=== PATIENT | female | born 1975 | race Caucasian/White ===

== ENCOUNTER 2017-09-15 12:55 | Inpatient (IN) | payer BC, MEDICAID ==
[2017-09-15] VITALS (9 sets, daily range): BP systolic 126–177; BP diastolic 49–104
[~2017-09-15] VITALS: Ht 151.1 cm; Wt 105.0 kg
[2017-09-15 13:23] LABS: BASOPHILS # (AUTO) 0.1 X10'3 (0-0.2); BASOPHILS % (AUTO) 1.3 % (0-1); EOSINOPHILS # (AUTO) 0.2 X10'3 (0-0.9); EOSINOPHILS % (AUTO) 2.2 % (0-6); LYMPHOCYTES # (AUTO) 1.4 X10'3 (1.1-4.8); MEAN CORPUSCULAR HEMOGLOBIN 16.4 PG (27.0-31.0); MEAN CORPUSCULAR HGB CONC 29.3 % (33.0-36.5); MEAN CORPUSCULAR VOLUME 56.1 FL (78-98); MEAN PLATELET VOLUME 7.3 FL (7.4-10.4); MONOCYTES # (AUTO) 0.6 X10'3 (0-0.9); MONOCYTES % (AUTO) 6.9 % (2-12); NEUTROPHILS # (AUTO) 6.8 X10'3 (1.8-7.7); NEUTROPHILS % (AUTO) 74.6 % (42-75); PLATELET COUNT 334 X10'3 (140-440); RED BLOOD COUNT 2.99 X10'6 (4.20-5.60); WHITE BLOOD COUNT 9.1 X10'3 (4.5-11.0)
[2017-09-15 13:30] LABS: HEMATOCRIT 16.8 % (35.0-45.0); HEMOGLOBIN 4.9 g/dl (12.0-16.0)
[2017-09-15 13:35] LABS: INR 1.1 INR; PARTIAL THROMBOPLASTIN TIME 21 SECONDS (22-32); PROTHROMBIN TIME 11.6 SECONDS (9.0-12.0)
[2017-09-15 13:42] LABS: ALANINE AMINOTRANSFERASE 18 U/L (12-78); ALBUMIN 3.3 G/DL (3.4-5.0); ALBUMIN/GLOBULIN RATIO 0.8 (1.1-1.5); ALKALINE PHOSPHATASE 101 IU/L (46-116); ANION GAP 13 (8-16); ASPARTATE AMINO TRANSFERASE 17 U/L (10-37); BILIRUBIN,TOTAL 0.5 MG/DL (0.1-1.0); BLOOD UREA NITROGEN 15 MG/DL (7-18); BUN/CREATININE RATIO 16.9 (6.6-38.0); CHLORIDE 105 MMOL/L (99-107); CREATININE 0.89 MG/DL (0.40-0.90); GLUCOSE 116 MG/DL (70-104); POTASSIUM 4.3 MMOL/L (3.5-5.1); SODIUM 141 MMOL/L (135-145); TOTAL CARBON DIOXIDE 23.3 MMOL/L (24-32); TOTAL PROTEIN 7.2 G/DL (6.4-8.2); eGFR 69 ML/MIN
[2017-09-15 14:29] LABS: ANISOCYTOSIS 3+; MICROCYTOSIS 3+; NUCLEATED RED BLOOD CELLS 2 /100WBC (0-0); PLATELET ESTIMATE NORMAL; TOTAL CELLS COUNTED 100
[2017-09-15 14:30] LABS: HYPOCHROMASIA 2+; POLYCHROMASIA FEW
[2017-09-15 14:31] LABS: ELLIPTOCYTES FEW; SCHISTOCYTES FEW
[2017-09-15 14:34] LABS: GIANT PLATELET FEW; LARGE PLATELETS FEW
[2017-09-15] MEDS ORDERED: magnesium 2GM in 50ml NS 50 ML IV PRN (15:10)
[2017-09-15] MEDS ORDERED: HYDROmorphone inj. 0.5 MG/0.5 ML DISP.SYRIN IV PRN ×2 (15:10)
[2017-09-15] MEDS ORDERED: potassium Cl 20 mEq SR tablet PO PRN ×2 (15:10)
[2017-09-15] MEDS ORDERED: ondansetron/PF 4mg/2ml inj IV PRN (15:10)
[2017-09-15] MEDS ORDERED: magnesium 4gm in 100ml NS 100 ML IV PRN (15:10)
[2017-09-15] MEDS ORDERED: HYDROcodone/acetaminophen 5mg/325mg tablet PO PRN (15:10)
[2017-09-15] MEDS ORDERED: magnesium Cl slow-release 64mg tablet PO PRN (15:10)
[2017-09-15] MEDS ORDERED: potassium Cl 40MEQ/NS 500ml 500 ML IV PRN ×2 (15:10)
[2017-09-15] MEDS ORDERED: mag hydrox/Alum hydrox/simeth 30ml oral suspension PO PRN (15:10)
[2017-09-15] MEDS ORDERED: morphine 4 MG/ML inj SYRINge IV PRN (15:10)
[2017-09-15] MEDS ORDERED: acetaminophen 325mg tablet PO PRN (15:10)
[2017-09-15] MEDS ORDERED: magnesium hydroxide 30ml (MOM) UD suspension PO PRN (15:10)
[2017-09-15] MEDS: K and/or MAG REPLACEMENT MC SCH (15:10)
[2017-09-15] MEDS: normal saline 1000ml 1,000 ML IV SCH (15:19)
[2017-09-15] MEDS ORDERED: RANI150T8 PO (19:44)
[2017-09-15] MEDS ORDERED: IBUP200C5 PO (19:44)
[2017-09-15 20:07] LABS: OCCULT BLOOD STOOL POSITIVE (Neg)
[2017-09-15] MEDS: morphine 4 MG/ML inj SYRINge IV PRN (20:38)
[2017-09-16] VITALS (24 sets, daily range): BP systolic 121–180; BP diastolic 71–100
[2017-09-16] MEDS: normal saline 1000ml 1,000 ML IV SCH ×3 (01:08→22:35)
[2017-09-16] MEDS: morphine 4 MG/ML inj SYRINge IV PRN (04:21)
[2017-09-16] MEDS: K and/or MAG REPLACEMENT MC SCH (08:00)
[2017-09-16 08:14] LABS: BASOPHILS % (AUTO) 0 % (0-1); EOSINOPHILS # (AUTO) 0.2 X10'3 (0-0.9); EOSINOPHILS % (AUTO) 2.2 % (0-6); HEMATOCRIT 28.7 % (35.0-45.0); LYMPHOCYTES # (AUTO) 1.6 X10'3 (1.1-4.8); LYMPHOCYTES % (AUTO) 20.1 % (21-51); MEAN CORPUSCULAR HGB CONC 31.4 % (33.0-36.5); MEAN CORPUSCULAR VOLUME 70.1 FL (78-98); MEAN PLATELET VOLUME 7.6 FL (7.4-10.4); MONOCYTES # (AUTO) 0.6 X10'3 (0-0.9); MONOCYTES % (AUTO) 7.5 % (2-12); NEUTROPHILS # (AUTO) 5.7 X10'3 (1.8-7.7); NEUTROPHILS % (AUTO) 70.2 % (42-75); PLATELET COUNT 231 X10'3 (140-440); RED BLOOD COUNT 4.09 X10'6 (4.20-5.60); RED CELL DISTRIBUTION WIDTH 31.1 % (11.5-14.5); WHITE BLOOD COUNT 8.1 X10'3 (4.5-11.0)
[2017-09-16 08:26] LABS: ALBUMIN 3.1 G/DL (3.4-5.0); ANION GAP 9 (8-16); BLOOD UREA NITROGEN 10 MG/DL (7-18); BUN/CREATININE RATIO 12.3 (6.6-38.0); CALCIUM 8.5 MG/DL (8.5-10.1); CHLORIDE 108 MMOL/L (99-107); CREATININE 0.81 MG/DL (0.40-0.90); GLUCOSE 107 MG/DL (70-104); MAGNESIUM 2.3 MG/DL (1.5-2.4); POTASSIUM 4.1 MMOL/L (3.5-5.1); SODIUM 141 MMOL/L (135-145); TOTAL CARBON DIOXIDE 23.7 MMOL/L (24-32); TROPONIN I 0.07 NG/ML (0.0-0.05); eGFR 77 ML/MIN
[2017-09-16 08:28] LABS: INR 1.1 INR; PROTHROMBIN TIME 11.2 SECONDS (9.0-12.0)
[2017-09-16 08:37] LABS: ANISOCYTOSIS 3+; PLATELET ESTIMATE NORMAL
[2017-09-16 08:38] LABS: MICROCYTOSIS 2+
[2017-09-16 08:39] LABS: HYPOCHROMASIA 1+; POIKILOCYTOSIS FEW; POLYCHROMASIA 2+
[2017-09-16] MEDS ORDERED: fentaNYL/PF 50MCG/1 ML 2ML syringe ONE (14:57)
[2017-09-16] MEDS ORDERED: MIDAZolam 5mg/5ml vial ONE (14:58)
[2017-09-16] MEDS ORDERED: LIDOcaine Viscous 15ml cup ONE (14:58)
[2017-09-16] MEDS ORDERED: ipratropium/albuterol 3ml nebule IH PRN (19:35)
[2017-09-16] MEDS ORDERED: hydrALAZINE 20mg/ml inj. IV PRN (19:35)
[2017-09-16] MEDS ORDERED: ipratropium/albuterol 3ml nebule NEB PRN (19:40)
[2017-09-16] MEDS: pantoprazole 40 MG vial IV SCH (20:00)
[2017-09-16] MEDS ORDERED: normal saline 1000ml 1,000 ML IVB ONE (21:21)
[2017-09-16 21:32] LABS: URINE HCG NEGATIVE (NEG)
[2017-09-16] MEDS: nicotine 21mg patch - 24 hr TD SCH (22:00)
[2017-09-17 00:05] VITALS: BP 138/68
[2017-09-17 01:52] LABS: ALBUMIN 2.9 G/DL (3.4-5.0); ANION GAP 11 (8-16); BLOOD UREA NITROGEN 7 MG/DL (7-18); BUN/CREATININE RATIO 8.9 (6.6-38.0); CALCIUM 8.4 MG/DL (8.5-10.1); CHLORIDE 107 MMOL/L (99-107); CREATININE 0.79 MG/DL (0.40-0.90); GLUCOSE 129 MG/DL (70-104); MAGNESIUM 2.2 MG/DL (1.5-2.4); POTASSIUM 3.8 MMOL/L (3.5-5.1); SODIUM 141 MMOL/L (135-145); TOTAL CARBON DIOXIDE 23.5 MMOL/L (24-32); TROPONIN I 0.07 NG/ML (0.0-0.05); eGFR 79 ML/MIN
[2017-09-17 01:57] LABS: BASOPHILS % (AUTO) 0.1 % (0-1); EOSINOPHILS # (AUTO) 0.3 X10'3 (0-0.9); EOSINOPHILS % (AUTO) 2.7 % (0-6); HEMATOCRIT 29.5 % (35.0-45.0); HEMOGLOBIN 9.3 g/dl (12.0-16.0); LYMPHOCYTES # (AUTO) 1.5 X10'3 (1.1-4.8); LYMPHOCYTES % (AUTO) 15.2 % (21-51); MEAN CORPUSCULAR HEMOGLOBIN 22.1 PG (27.0-31.0); MEAN CORPUSCULAR HGB CONC 31.5 % (33.0-36.5); MEAN CORPUSCULAR VOLUME 70.1 FL (78-98); MONOCYTES # (AUTO) 0.8 X10'3 (0-0.9); MONOCYTES % (AUTO) 8.4 % (2-12); NEUTROPHILS # (AUTO) 7.4 X10'3 (1.8-7.7); NEUTROPHILS % (AUTO) 73.6 % (42-75); PLATELET COUNT 219 X10'3 (140-440); RED BLOOD COUNT 4.21 X10'6 (4.20-5.60); RED CELL DISTRIBUTION WIDTH 31.3 % (11.5-14.5)
[2017-09-17 02:11] LABS: D-DIMER 7.86 MG/L FEU (0-0.50); INR 1.1 INR; PROTHROMBIN TIME 11.5 SECONDS (9.0-12.0)
[2017-09-17] MEDS: K and/or MAG REPLACEMENT MC SCH (08:00)
[2017-09-17] MEDS: nicotine 21mg patch - 24 hr TD SCH (08:00)
[2017-09-17] MEDS: nitroGLYCERIN 0.4mg/hour patch TD SCH (08:00)
[2017-09-17] MEDS: pantoprazole 40 MG vial IV SCH ×2 (08:52→20:04)
[2017-09-17 08:58] VITALS: BP 138/81
[2017-09-17 13:05] VITALS: BP 155/76
[2017-09-17] MEDS ORDERED: iohexol 350MG/ML 100ml bottle IV ONE (17:18)
[2017-09-17 18:00] VITALS: BP 148/79
[2017-09-17] MEDS ORDERED: heparin 10,000 units/1 ML INJ IV ONE ×2 (23:25)
[2017-09-18] VITALS: BP 164/81
[2017-09-18 00:13] LABS: BASOPHILS % (AUTO) 0.3 % (0-1); EOSINOPHILS # (AUTO) 0.3 X10'3 (0-0.9); EOSINOPHILS % (AUTO) 3.5 % (0-6); HEMATOCRIT 30.6 % (35.0-45.0); HEMOGLOBIN 9.6 g/dl (12.0-16.0); LYMPHOCYTES # (AUTO) 2.1 X10'3 (1.1-4.8); LYMPHOCYTES % (AUTO) 23.9 % (21-51); MEAN CORPUSCULAR HEMOGLOBIN 21.9 PG (27.0-31.0); MEAN CORPUSCULAR HGB CONC 31.4 % (33.0-36.5); MEAN CORPUSCULAR VOLUME 69.7 FL (78-98); MEAN PLATELET VOLUME 7.6 FL (7.4-10.4); MONOCYTES # (AUTO) 0.8 X10'3 (0-0.9); MONOCYTES % (AUTO) 8.6 % (2-12); NEUTROPHILS # (AUTO) 5.7 X10'3 (1.8-7.7); NEUTROPHILS % (AUTO) 63.7 % (42-75); PLATELET COUNT 217 X10'3 (140-440); RED CELL DISTRIBUTION WIDTH 31.6 % (11.5-14.5); WHITE BLOOD COUNT 8.9 X10'3 (4.5-11.0)
[2017-09-18 00:22] LABS: ANION GAP 13 (8-16); BLOOD UREA NITROGEN 6 MG/DL (7-18); BUN/CREATININE RATIO 7.7 (6.6-38.0); CALCIUM 8.7 MG/DL (8.5-10.1); CHLORIDE 107 MMOL/L (99-107); CREATININE 0.78 MG/DL (0.40-0.90); GLUCOSE 114 MG/DL (70-104); MAGNESIUM 2.2 MG/DL (1.5-2.4); POTASSIUM 3.6 MMOL/L (3.5-5.1); SODIUM 142 MMOL/L (135-145); TOTAL CARBON DIOXIDE 22.2 MMOL/L (24-32); eGFR 80 ML/MIN
[2017-09-18 00:38] LABS: INR 1.1 INR; PROTHROMBIN TIME 11.2 SECONDS (9.0-12.0)
[2017-09-18 02:11] LABS: ANISOCYTOSIS 2+; MICROCYTOSIS 2+; PLATELET ESTIMATE NORMAL
[2017-09-18 02:13] LABS: POLYCHROMASIA FEW
[2017-09-18 07:08] LABS: BASOPHILS % (AUTO) 0.4 % (0-1); EOSINOPHILS # (AUTO) 0.4 X10'3 (0-0.9); EOSINOPHILS % (AUTO) 4.2 % (0-6); HEMATOCRIT 31.1 % (35.0-45.0); HEMOGLOBIN 9.8 g/dl (12.0-16.0); LYMPHOCYTES # (AUTO) 2.1 X10'3 (1.1-4.8); LYMPHOCYTES % (AUTO) 22.9 % (21-51); MEAN CORPUSCULAR HEMOGLOBIN 22.1 PG (27.0-31.0); MEAN CORPUSCULAR HGB CONC 31.6 % (33.0-36.5); MEAN CORPUSCULAR VOLUME 69.9 FL (78-98); MONOCYTES # (AUTO) 0.8 X10'3 (0-0.9); MONOCYTES % (AUTO) 8.5 % (2-12); NEUTROPHILS # (AUTO) 5.8 X10'3 (1.8-7.7); PLATELET COUNT 206 X10'3 (140-440); RED BLOOD COUNT 4.45 X10'6 (4.20-5.60)
[2017-09-18 07:12] VITALS: BP 135/71
[2017-09-18 07:58] LABS: PLATELET ESTIMATE NORMAL
[2017-09-18 07:59] LABS: ANISOCYTOSIS 3+; HYPOCHROMASIA 2+; MICROCYTOSIS 2+; POLYCHROMASIA 2+
[2017-09-18 08:00] VITALS: BP_SYST 135; BP_SYST 146; BP_SYST 147; BP_DIAS 71; BP_DIAS 82; BP_DIAS 93
[2017-09-18] MEDS: nicotine 21mg patch - 24 hr TD SCH (08:00)
[2017-09-18] MEDS: nitroGLYCERIN 0.4mg/hour patch TD SCH (08:00)
[2017-09-18] MEDS: pantoprazole 40 MG vial IV SCH ×2 (08:53→21:05)
[2017-09-18] MEDS: K and/or MAG REPLACEMENT MC SCH (10:00)
[2017-09-18 12:02] VITALS: BP 153/68
[2017-09-18 13:44] LABS: HEMATOCRIT 31.8 % (35.0-45.0); MEAN CORPUSCULAR HEMOGLOBIN 22.1 PG (27.0-31.0); MEAN CORPUSCULAR HGB CONC 31.3 % (33.0-36.5); MEAN CORPUSCULAR VOLUME 70.5 FL (78-98); MEAN PLATELET VOLUME 8.6 FL (7.4-10.4); PLATELET COUNT 248 X10'3 (140-440); RED BLOOD COUNT 4.51 X10'6 (4.20-5.60); RED CELL DISTRIBUTION WIDTH 31.9 % (11.5-14.5)
[2017-09-18 19:00] VITALS: BP 122/63
[2017-09-18 19:57] LABS: HEMATOCRIT 32.5 % (35.0-45.0); HEMOGLOBIN 10.3 g/dl (12.0-16.0); MEAN CORPUSCULAR HEMOGLOBIN 22.1 PG (27.0-31.0); MEAN CORPUSCULAR HGB CONC 31.8 % (33.0-36.5); MEAN CORPUSCULAR VOLUME 69.5 FL (78-98); MEAN PLATELET VOLUME 8.2 FL (7.4-10.4); PLATELET COUNT 227 X10'3 (140-440); RED BLOOD COUNT 4.67 X10'6 (4.20-5.60); RED CELL DISTRIBUTION WIDTH 32.2 % (11.5-14.5); WHITE BLOOD COUNT 10.4 X10'3 (4.5-11.0)
[2017-09-18 20:00] VITALS: BP_SYST 122; BP_SYST 142; BP_SYST 145; BP_DIAS 63; BP_DIAS 90; BP_DIAS 94
[2017-09-18] MEDS: temazepam 15mg capsule PO PRN (21:04)
[2017-09-18] MEDS: heparin 10,000 units/1 ML INJ IV PRN (21:15)
[2017-09-19] VITALS: BP 120/68
[2017-09-19 05:18] LABS: BASOPHILS % (AUTO) 0.3 % (0-1); EOSINOPHILS # (AUTO) 0.5 X10'3 (0-0.9); EOSINOPHILS % (AUTO) 5.2 % (0-6); HEMATOCRIT 30.6 % (35.0-45.0); HEMOGLOBIN 9.6 g/dl (12.0-16.0); LYMPHOCYTES % (AUTO) 22.4 % (21-51); MEAN CORPUSCULAR HGB CONC 31.4 % (33.0-36.5); MEAN CORPUSCULAR VOLUME 70.1 FL (78-98); MEAN PLATELET VOLUME 8.4 FL (7.4-10.4); MONOCYTES # (AUTO) 0.7 X10'3 (0-0.9); MONOCYTES % (AUTO) 7.9 % (2-12); NEUTROPHILS # (AUTO) 5.8 X10'3 (1.8-7.7); NEUTROPHILS % (AUTO) 64.2 % (42-75); PLATELET COUNT 230 X10'3 (140-440); RED BLOOD COUNT 4.37 X10'6 (4.20-5.60); RED CELL DISTRIBUTION WIDTH 32.2 % (11.5-14.5)
[2017-09-19 05:45] LABS: INR 1.1 INR; PROTHROMBIN TIME 11.5 SECONDS (9.0-12.0)
[2017-09-19 05:47] LABS: ALBUMIN 2.9 G/DL (3.4-5.0); ANION GAP 12 (8-16); BLOOD UREA NITROGEN 10 MG/DL (7-18); BUN/CREATININE RATIO 13.9 (6.6-38.0); CALCIUM 8.8 MG/DL (8.5-10.1); CHLORIDE 107 MMOL/L (99-107); CREATININE 0.72 MG/DL (0.40-0.90); GLUCOSE 114 MG/DL (70-104); MAGNESIUM 2.2 MG/DL (1.5-2.4); POTASSIUM 3.7 MMOL/L (3.5-5.1); SODIUM 141 MMOL/L (135-145); TOTAL CARBON DIOXIDE 22.2 MMOL/L (24-32); eGFR 88 ML/MIN
[2017-09-19 06:54] VITALS: BP 109/45
[2017-09-19] MEDS: K and/or MAG REPLACEMENT MC SCH (08:00)
[2017-09-19] MEDS: pantoprazole 40 MG vial IV SCH (08:09)
[2017-09-19 09:40] LABS: MEAN CORPUSCULAR HEMOGLOBIN 21.9 PG (27.0-31.0); MEAN CORPUSCULAR HGB CONC 31.2 % (33.0-36.5); MEAN CORPUSCULAR VOLUME 70.4 FL (78-98); MEAN PLATELET VOLUME 9.3 FL (7.4-10.4); PLATELET COUNT 199 X10'3 (140-440); RED BLOOD COUNT 4.55 X10'6 (4.20-5.60); RED CELL DISTRIBUTION WIDTH 31.8 % (11.5-14.5); WHITE BLOOD COUNT 8.7 X10'3 (4.5-11.0)
[2017-09-19 11:00] VITALS: BP 142/75
[2017-09-19 11:12] VITALS: BP_SYST 142; BP_SYST 149; BP_SYST 165; BP_DIAS 48; BP_DIAS 75; BP_DIAS 83
[2017-09-19 12:15] LABS: HEMATOCRIT 32.3 % (35.0-45.0); HEMOGLOBIN 10.1 g/dl (12.0-16.0); MEAN CORPUSCULAR HEMOGLOBIN 21.9 PG (27.0-31.0); MEAN CORPUSCULAR HGB CONC 31.4 % (33.0-36.5); MEAN CORPUSCULAR VOLUME 69.8 FL (78-98); MEAN PLATELET VOLUME 8.1 FL (7.4-10.4); PLATELET COUNT 226 X10'3 (140-440); RED BLOOD COUNT 4.62 X10'6 (4.20-5.60); RED CELL DISTRIBUTION WIDTH 32.1 % (11.5-14.5); WHITE BLOOD COUNT 9.1 X10'3 (4.5-11.0)
[2017-09-19 20:00] VITALS: BP 120/59
[2017-09-19] MEDS: pantoprazole 40mg Tablet.DR PO SCH (20:44)
[2017-09-20] VITALS: BP_SYST 134; BP_SYST 140; BP_SYST 145; BP_DIAS 51; BP_DIAS 79; BP_DIAS 92
[2017-09-20 06:47] LABS: BASOPHILS % (AUTO) 0.1 % (0-1); EOSINOPHILS # (AUTO) 0.4 X10'3 (0-0.9); EOSINOPHILS % (AUTO) 4.6 % (0-6); HEMATOCRIT 31.2 % (35.0-45.0); HEMOGLOBIN 9.7 g/dl (12.0-16.0); LYMPHOCYTES # (AUTO) 2.2 X10'3 (1.1-4.8); MEAN CORPUSCULAR HEMOGLOBIN 21.9 PG (27.0-31.0); MEAN CORPUSCULAR HGB CONC 31.1 % (33.0-36.5); MEAN CORPUSCULAR VOLUME 70.3 FL (78-98); MEAN PLATELET VOLUME 9.1 FL (7.4-10.4); MONOCYTES # (AUTO) 0.5 X10'3 (0-0.9); MONOCYTES % (AUTO) 6.8 % (2-12); NEUTROPHILS # (AUTO) 4.7 X10'3 (1.8-7.7); NEUTROPHILS % (AUTO) 60.5 % (42-75); PLATELET COUNT 246 X10'3 (140-440); RED BLOOD COUNT 4.44 X10'6 (4.20-5.60); WHITE BLOOD COUNT 7.7 X10'3 (4.5-11.0)
[2017-09-20 06:56] LABS: ALBUMIN 2.9 G/DL (3.4-5.0); ANION GAP 11 (8-16); BLOOD UREA NITROGEN 12 MG/DL (7-18); BUN/CREATININE RATIO 16.2 (6.6-38.0); CALCIUM 8.8 MG/DL (8.5-10.1); CHLORIDE 107 MMOL/L (99-107); CREATININE 0.74 MG/DL (0.40-0.90); GLUCOSE 97 MG/DL (70-104); MAGNESIUM 2.1 MG/DL (1.5-2.4); POTASSIUM 3.8 MMOL/L (3.5-5.1); SODIUM 142 MMOL/L (135-145); TOTAL CARBON DIOXIDE 24.3 MMOL/L (24-32); eGFR 85 ML/MIN
[2017-09-20 06:58] LABS: INR 1.1 INR; PROTHROMBIN TIME 11.3 SECONDS (9.0-12.0)
[2017-09-20 07:06] LABS: PLATELET ESTIMATE NORMAL
[2017-09-20 07:07] LABS: ANISOCYTOSIS 3+; HYPOCHROMASIA 1+; POLYCHROMASIA FEW; SCHISTOCYTES 1+
[2017-09-20] MEDS: K and/or MAG REPLACEMENT MC SCH (07:18)
[2017-09-20 07:30] VITALS: BP 131/59
[2017-09-20 08:00] VITALS: BP_SYST 135; BP_SYST 138; BP_SYST 141; BP_DIAS 69; BP_DIAS 74; BP_DIAS 84
[2017-09-20] MEDS: pantoprazole 40mg Tablet.DR PO SCH ×2 (08:20→20:17)
[2017-09-20 12:30] VITALS: BP 135/69
[2017-09-20 20:00] VITALS: BP_SYST 101; BP_SYST 107; BP_SYST 109; BP_DIAS 62; BP_DIAS 70; BP_DIAS 72
[2017-09-21] VITALS: BP 117/50
[2017-09-21 07:00] VITALS: BP 130/77
[2017-09-21] MEDS: K and/or MAG REPLACEMENT MC SCH (08:00)
[2017-09-21] MEDS: pantoprazole 40mg Tablet.DR PO SCH ×2 (08:00→20:53)
[2017-09-21 12:00] VITALS: BP 134/57
[2017-09-21 12:22] LABS: BASOPHILS % (AUTO) 0.5 % (0-1); EOSINOPHILS # (AUTO) 0.2 X10'3 (0-0.9); EOSINOPHILS % (AUTO) 2.5 % (0-6); HEMATOCRIT 32.7 % (35.0-45.0); HEMOGLOBIN 10.2 g/dl (12.0-16.0); LYMPHOCYTES # (AUTO) 1.6 X10'3 (1.1-4.8); LYMPHOCYTES % (AUTO) 23.8 % (21-51); MEAN CORPUSCULAR HEMOGLOBIN 22.1 PG (27.0-31.0); MEAN CORPUSCULAR HGB CONC 31.2 % (33.0-36.5); MEAN CORPUSCULAR VOLUME 70.9 FL (78-98); MEAN PLATELET VOLUME 8.4 FL (7.4-10.4); MONOCYTES # (AUTO) 0.5 X10'3 (0-0.9); MONOCYTES % (AUTO) 7.6 % (2-12); NEUTROPHILS # (AUTO) 4.5 X10'3 (1.8-7.7); NEUTROPHILS % (AUTO) 65.6 % (42-75); PLATELET COUNT 269 X10'3 (140-440); RED BLOOD COUNT 4.61 X10'6 (4.20-5.60); RED CELL DISTRIBUTION WIDTH 31.8 % (11.5-14.5); WHITE BLOOD COUNT 6.9 X10'3 (4.5-11.0)
[2017-09-21 12:48] LABS: ANISOCYTOSIS 2+; HYPOCHROMASIA 2+; PLATELET ESTIMATE NORMAL
[2017-09-21 12:49] LABS: POLYCHROMASIA 1+
[2017-09-21 20:00] VITALS: BP_SYST 133; BP_SYST 146; BP_SYST 147; BP_DIAS 68; BP_DIAS 82; BP_DIAS 92
[2017-09-21] MEDS ORDERED: warfarin 5mg tablet PO ONE (21:00)
[2017-09-22] VITALS: BP 114/72
[2017-09-22 03:54] LABS: BASOPHILS # (AUTO) 0.1 X10'3 (0-0.2); BASOPHILS % (AUTO) 0.7 % (0-1); EOSINOPHILS # (AUTO) 0.3 X10'3 (0-0.9); EOSINOPHILS % (AUTO) 3.5 % (0-6); HEMATOCRIT 30.6 % (35.0-45.0); HEMOGLOBIN 9.5 g/dl (12.0-16.0); LYMPHOCYTES # (AUTO) 2.2 X10'3 (1.1-4.8); LYMPHOCYTES % (AUTO) 26.2 % (21-51); MEAN CORPUSCULAR HEMOGLOBIN 21.8 PG (27.0-31.0); MEAN CORPUSCULAR VOLUME 70.4 FL (78-98); MEAN PLATELET VOLUME 9.3 FL (7.4-10.4); MONOCYTES # (AUTO) 0.6 X10'3 (0-0.9); MONOCYTES % (AUTO) 6.7 % (2-12); NEUTROPHILS # (AUTO) 5.2 X10'3 (1.8-7.7); NEUTROPHILS % (AUTO) 62.9 % (42-75); PLATELET COUNT 295 X10'3 (140-440); RED BLOOD COUNT 4.35 X10'6 (4.20-5.60); RED CELL DISTRIBUTION WIDTH 31.3 % (11.5-14.5); WHITE BLOOD COUNT 8.3 X10'3 (4.5-11.0)
[2017-09-22 04:09] LABS: ANISOCYTOSIS 3+; PLATELET ESTIMATE NORMAL
[2017-09-22 04:10] LABS: HYPOCHROMASIA 2+; POLYCHROMASIA FEW; TEAR DROP CELLS FEW
[2017-09-22 04:19] LABS: ALBUMIN 3.1 G/DL (3.4-5.0); ANION GAP 11 (8-16); BLOOD UREA NITROGEN 13 MG/DL (7-18); CHLORIDE 106 MMOL/L (99-107); CREATININE 0.81 MG/DL (0.40-0.90); GLUCOSE 104 MG/DL (70-104); SODIUM 142 MMOL/L (135-145); TOTAL CARBON DIOXIDE 25.3 MMOL/L (24-32); eGFR 77 ML/MIN
[2017-09-22 04:23] LABS: INR 1.1 INR; PROTHROMBIN TIME 11.1 SECONDS (9.0-12.0)
[2017-09-22 07:00] VITALS: BP 126/63
[2017-09-22] MEDS: K and/or MAG REPLACEMENT MC SCH (08:00)
[2017-09-22] MEDS: pantoprazole 40mg Tablet.DR PO SCH ×2 (09:21→20:04)
[2017-09-22 11:00] VITALS: BP 136/68
[2017-09-22 19:00] VITALS: BP 127/54
[2017-09-22] MEDS ORDERED: warfarin 7.5mg tablet PO ONE (21:00)
[2017-09-22] MEDS: acetaminophen 325mg tablet PO PRN (22:26)
[2017-09-23] VITALS: BP 142/66
[2017-09-23] MEDS: HYDROcodone/acetaminophen 10/325mg tab PO PRN ×2 (04:27→21:30)
[2017-09-23 06:48] LABS: INR 1.2 INR; PROTHROMBIN TIME 11.9 SECONDS (9.0-12.0)
[2017-09-23 07:00] VITALS: BP 122/64
[2017-09-23] MEDS: K and/or MAG REPLACEMENT MC SCH (07:06)
[2017-09-23] MEDS: pantoprazole 40mg Tablet.DR PO SCH ×2 (07:37→20:00)
[2017-09-23 11:57] VITALS: BP 171/85
[2017-09-23 12:37] LABS: BASOPHILS % (AUTO) 0.6 % (0-1); EOSINOPHILS # (AUTO) 0.2 X10'3 (0-0.9); EOSINOPHILS % (AUTO) 2.9 % (0-6); HEMATOCRIT 31.5 % (35.0-45.0); HEMOGLOBIN 9.6 g/dl (12.0-16.0); LYMPHOCYTES # (AUTO) 1.7 X10'3 (1.1-4.8); LYMPHOCYTES % (AUTO) 27.5 % (21-51); MEAN CORPUSCULAR HEMOGLOBIN 21.8 PG (27.0-31.0); MEAN CORPUSCULAR HGB CONC 30.5 % (33.0-36.5); MEAN CORPUSCULAR VOLUME 71.3 FL (78-98); MEAN PLATELET VOLUME 10.1 FL (7.4-10.4); MONOCYTES # (AUTO) 0.5 X10'3 (0-0.9); MONOCYTES % (AUTO) 7.6 % (2-12); NEUTROPHILS # (AUTO) 3.9 X10'3 (1.8-7.7); NEUTROPHILS % (AUTO) 61.4 % (42-75); PLATELET COUNT 337 X10'3 (140-440); RED BLOOD COUNT 4.43 X10'6 (4.20-5.60); RED CELL DISTRIBUTION WIDTH 31.3 % (11.5-14.5); WHITE BLOOD COUNT 6.4 X10'3 (4.5-11.0)
[2017-09-23 12:45] LABS: ALBUMIN 3.1 G/DL (3.4-5.0); ANION GAP 10 (8-16); BLOOD UREA NITROGEN 13 MG/DL (7-18); BUN/CREATININE RATIO 18.8 (6.6-38.0); CHLORIDE 104 MMOL/L (99-107); CREATININE 0.69 MG/DL (0.40-0.90); GLUCOSE 98 MG/DL (70-104); POTASSIUM 3.8 MMOL/L (3.5-5.1); SODIUM 141 MMOL/L (135-145); TOTAL CARBON DIOXIDE 26.7 MMOL/L (24-32); eGFR > 90 ML/MIN
[2017-09-23 19:00] VITALS: BP 137/68
[2017-09-23] MEDS ORDERED: warfarin 7.5mg tablet PO ONE (21:00)
[2017-09-24] VITALS: BP 112/52
[2017-09-24 02:08] LABS: INR 1.3 INR; PROTHROMBIN TIME 13.5 SECONDS (9.0-12.0)
[2017-09-24] MEDS: HYDROcodone/acetaminophen 10/325mg tab PO PRN ×2 (04:52→17:10)
[2017-09-24] MEDS: K and/or MAG REPLACEMENT MC SCH (06:47)
[2017-09-24] MEDS: pantoprazole 40mg Tablet.DR PO SCH ×2 (07:14→20:54)
[2017-09-24 08:18] VITALS: BP 122/72
[2017-09-24 08:19] LABS: BASOPHILS % (AUTO) 0.1 % (0-1); EOSINOPHILS # (AUTO) 0.3 X10'3 (0-0.9); EOSINOPHILS % (AUTO) 3.7 % (0-6); HEMATOCRIT 29.4 % (35.0-45.0); HEMOGLOBIN 9.2 g/dl (12.0-16.0); LYMPHOCYTES # (AUTO) 1.8 X10'3 (1.1-4.8); LYMPHOCYTES % (AUTO) 22.2 % (21-51); MEAN CORPUSCULAR HEMOGLOBIN 21.8 PG (27.0-31.0); MEAN CORPUSCULAR HGB CONC 31.2 % (33.0-36.5); MEAN CORPUSCULAR VOLUME 69.8 FL (78-98); MEAN PLATELET VOLUME 8.1 FL (7.4-10.4); MONOCYTES # (AUTO) 0.6 X10'3 (0-0.9); MONOCYTES % (AUTO) 7.5 % (2-12); NEUTROPHILS # (AUTO) 5.3 X10'3 (1.8-7.7); NEUTROPHILS % (AUTO) 66.5 % (42-75); PLATELET COUNT 290 X10'3 (140-440); RED BLOOD COUNT 4.21 X10'6 (4.20-5.60); WHITE BLOOD COUNT 7.9 X10'3 (4.5-11.0)
[2017-09-24 08:20] VITALS: BP 94/55
[2017-09-24 08:29] LABS: ALBUMIN 3.1 G/DL (3.4-5.0); ANION GAP 11 (8-16); ANISOCYTOSIS 3+; BLOOD UREA NITROGEN 12 MG/DL (7-18); BUN/CREATININE RATIO 16.4 (6.6-38.0); CALCIUM 8.8 MG/DL (8.5-10.1); CHLORIDE 103 MMOL/L (99-107); CREATININE 0.73 MG/DL (0.40-0.90); GLUCOSE 94 MG/DL (70-104); MAGNESIUM 2.1 MG/DL (1.5-2.4); MICROCYTOSIS 2+; PLATELET ESTIMATE NORMAL; POTASSIUM 3.9 MMOL/L (3.5-5.1); SODIUM 139 MMOL/L (135-145); TOTAL CARBON DIOXIDE 25.5 MMOL/L (24-32); eGFR 87 ML/MIN
[2017-09-24 08:31] LABS: HYPOCHROMASIA 1+; LARGE PLATELETS FEW; POIKILOCYTOSIS 1+; POLYCHROMASIA 1+
[2017-09-24 08:32] LABS: TARGET CELLS FEW; TEAR DROP CELLS FEW
[2017-09-24 11:49] VITALS: BP 110/59
[2017-09-24 19:00] VITALS: BP 111/66
[2017-09-24] MEDS ORDERED: warfarin 7.5mg tablet PO ONE (21:00)
[2017-09-25] VITALS: BP 107/42
[2017-09-25 03:11] LABS: INR 1.6 INR; PROTHROMBIN TIME 16.4 SECONDS (9.0-12.0)
[2017-09-25] MEDS: heparin 10,000 units/1 ML INJ IV PRN (03:47)
[2017-09-25 08:00] VITALS: BP 122/68
[2017-09-25] MEDS: K and/or MAG REPLACEMENT MC SCH (08:00)
[2017-09-25] MEDS: pantoprazole 40mg Tablet.DR PO SCH ×2 (08:10→20:42)
[2017-09-25 11:00] VITALS: BP 113/46
[2017-09-25] MEDS: acetaminophen 325mg tablet PO PRN ×2 (14:22→20:48)
[2017-09-25 19:20] VITALS: BP 118/60
[2017-09-25] MEDS ORDERED: warfarin 7.5mg tablet PO ONE (21:00)
[2017-09-25 23:00] VITALS: BP 122/57
[2017-09-26 03:27] LABS: INR 1.8 INR; PROTHROMBIN TIME 18.6 SECONDS (9.0-12.0)
[2017-09-26 07:59] VITALS: BP 129/52
[2017-09-26] MEDS: K and/or MAG REPLACEMENT MC SCH (08:00)
[2017-09-26] MEDS: pantoprazole 40mg Tablet.DR PO SCH ×2 (08:25→20:03)
[2017-09-26 12:00] VITALS: BP 125/69
[2017-09-26 20:00] VITALS: BP 130/72
[2017-09-26] MEDS ORDERED: warfarin 5mg tablet PO ONE (21:00)
[2017-09-26] MEDS: temazepam 15mg capsule PO PRN (21:16)
[2017-09-26] MEDS: acetaminophen 325mg tablet PO PRN (21:16)
[2017-09-27] VITALS: BP 120/53
[2017-09-27 05:55] LABS: INR 2.3 INR; PROTHROMBIN TIME 22.8 SECONDS (9.0-12.0)
[2017-09-27] MEDS: heparin 10,000 units/1 ML INJ IV PRN (06:08)
[2017-09-27 07:00] VITALS: BP 118/65
[2017-09-27] MEDS: pantoprazole 40mg Tablet.DR PO SCH (07:23)
[2017-09-27] MEDS: K and/or MAG REPLACEMENT MC SCH (07:29)
[2017-09-27] MEDS ORDERED: ENOX100D5 SUBCUT (14:13)
[2017-09-27] MEDS ORDERED: WARF4TAB69 PO (14:13)
[2017-09-27] MEDS ORDERED: PANT40TA4 PO (14:13)
[2017-09-27] MEDS ORDERED: enoxaparin 100mg/ml syringe SUBCUT ONE (14:45)
[2017-09-28] MEDS ORDERED: enoxaparin 100mg/ml syringe SUBCUT SCH (08:00)
== END 2017-09-27 16:05 | disposition home or self-care (01) | DRG 377 ==
LOC: ER 12:55 → ED HOLD 15:08 → SUR 3N 21:20
PROVIDERS: ADMIT Family Medicine; ATTEND Family Medicine
PROC: 30233N1 Transfusion of Nonautologous Red Blood Cells into Peripheral Vein, Percutaneous Approach (ICD-10-PCS; principal; 2017-09-15)
PROC: 0DB68ZX Excision of Stomach, Via Natural or Artificial Opening Endoscopic, Diagnostic (ICD-10-PCS; 2017-09-16)
PROC: B32T1ZZ Computerized Tomography (CT Scan) of Left Pulmonary Artery using Low Osmolar Contrast (ICD-10-PCS; 2017-09-17)
PROC: B3201ZZ Computerized Tomography (CT Scan) of Thoracic Aorta using Low Osmolar Contrast (ICD-10-PCS; 2017-09-17)
PROC: B32S1ZZ Computerized Tomography (CT Scan) of Right Pulmonary Artery using Low Osmolar Contrast (ICD-10-PCS; 2017-09-17)
DX: K29.71 Gastritis, unspecified, with bleeding (principal); I21.A1 Myocardial infarction type 2; I26.99 Other pulmonary embolism without acute cor pulmonale; E66.01 Morbid (severe) obesity due to excess calories; Z68.42 Body mass index [BMI] 45.0-49.9, adult; J45.22 Mild intermittent asthma with status asthmaticus; K22.10 Ulcer of esophagus without bleeding; D50.0 Iron deficiency anemia secondary to blood loss (chronic); F15.10 Other stimulant abuse, uncomplicated; D64.9 Anemia, unspecified; R06.89 Other abnormalities of breathing; K21.9 Gastro-esophageal reflux disease without esophagitis; K30 Functional dyspepsia; K44.9 Diaphragmatic hernia without obstruction or gangrene; Z79.01 Long term (current) use of anticoagulants; Z88.1 Allergy status to other antibiotic agents; Z82.49 Family history of ischemic heart disease and other diseases of the circulatory system; Z87.891 Personal history of nicotine dependence
CPT/HCPCS: 36415; 43239; 71045; 71275; 80048; 80053; 81025; 82272; 83735; 84484; 85025; 85027; 85379; 85610; 85730; 86885; 86900; 86901; 86920; 87070; 93005; 93306; 93970; 99291; A4620; A6258; C9113; G0500; J1170; J1644; J1650; J2250; J2270; J2405; J3010; J7030; P9016; Q9967

== ENCOUNTER 2020-03-27 05:45 | Day surgery (SDC) | payer BC ==
[2020-03-20 16:28] LABS: BASOPHILS % (AUTO) 0.5 % (0-1); EOSINOPHILS # (AUTO) 0.1 X10'3 (0-0.9); EOSINOPHILS % (AUTO) 1.1 % (0-6); LYMPHOCYTES % (AUTO) 35.9 % (21-51); MEAN CORPUSCULAR HEMOGLOBIN 30.5 PG (27.0-31.0); MEAN CORPUSCULAR HGB CONC 33.9 g/dL (33.0-36.5); MEAN PLATELET VOLUME 7.5 FL (7.4-10.4); MONOCYTES # (AUTO) 0.4 X10'3 (0-0.9); NEUTROPHILS # (AUTO) 3.1 X10'3 (1.8-7.7); NEUTROPHILS % (AUTO) 55.5 % (42-75); PRE OP HEMATOCRIT 42.8 % (35.0-45.0); PRE OP HEMOGLOBIN 14.5 g/dL (12.0-16.0); PRE OP PLATELET COUNT 283 X10'3 (140-440); RED BLOOD COUNT 4.76 X10'6 (4.20-5.60); RED CELL DISTRIBUTION WIDTH 13.7 % (11.5-14.5)
[2020-03-20 16:34] LABS: ALBUMIN 3.9 G/DL (3.4-5.0); ALBUMIN/GLOBULIN RATIO 1.1 (1.1-1.5); ALKALINE PHOSPHATASE 88 IU/L (46-116); BLOOD UREA NITROGEN 9 MG/DL (7-18); BUN/CREATININE RATIO 10.3 (6.6-38.0); CALCIUM 8.8 MG/DL (8.5-10.1); CHLORIDE 104 MMOL/L (99-107); CREATININE 0.87 MG/DL (0.40-0.90); PRE OP ALT 20 U/L (30-65); PRE OP ANION GAP 7 (8-16); PRE OP AST 20 U/L (10-37); PRE OP BILIRUB, TOTAL 0.4 MG/DL (0.0-1.0); PRE OP GLUCOSE 82 MG/DL (70-104); PRE OP POTASSIUM 3.4 MMOL/L (3.4-5.1); PRE OP SODIUM 140 MMOL/L (135-145); TOTAL CARBON DIOXIDE 29.3 MMOL/L (24-32); TOTAL PROTEIN 7.5 G/DL (6.4-8.2); eGFR 70 ML/MIN
[2020-03-20 16:43] LABS: PRE OP PROTIME 21.8 SECONDS (9.0-12.0)
[2020-03-20 16:45] LABS: PRE OP INR 2.2 INR
[2020-03-27] VITALS (18 sets, daily range): BP systolic 120–158; BP diastolic 71–99
[~2020-03-27] VITALS: Ht 149.9 cm; Wt 93.8 kg
[~2020-03-27 05:45] MED LIST: CYAN100T24 PO; FERR-116 PO; PANT-47 PO; WARF4TAB69 PO; clindamycin-Cleocin 900mg/D5W 50 ML IV ONE; famotidine 20mg tablet PO ONE; ringers solution, lacted 1,000 ML IV SCH
[2020-03-27] MEDS ORDERED: ENOX40SY7 SUBCUT (06:19)
[2020-03-27] MEDS ORDERED: LIDOcaine 1% 30ml preserv. free vial ONE (06:41)
[2020-03-27] MEDS ORDERED: BUPIVAcaine/PF 2.5 mg/ml (0.25%) 30ml vial ONE (06:42)
[2020-03-27 07:26] LABS: PARTIAL THROMBOPLASTIN TIME 27 SECONDS (22-32)
[2020-03-27] MEDS ORDERED: sevoflurane 250ml liquid IH ONE (07:32)
[2020-03-27] MEDS ORDERED: fentaNYL/PF 50MCG/1 ML 2ML syringe ONE (07:36)
[2020-03-27] MEDS ORDERED: midazolam 2 mg/2 ml injection ONE (07:37)
[2020-03-27] MEDS ORDERED: LIDOcaine 2% 5ml jelly ONE (07:39)
[2020-03-27] MEDS ORDERED: propofol inj 20 ML IV ONE ×3 (07:52→08:46)
[2020-03-27] MEDS ORDERED: dexamethasone sod phosphate 4mg/ml inj. ONE (07:52)
[2020-03-27] MEDS ORDERED: rocuronium 10mg/ml inj IV ONE (07:53)
[2020-03-27] MEDS ORDERED: ondansetron/PF 4mg/2ml inj ONE (07:53)
[2020-03-27] MEDS ORDERED: LIDOcaine 2% (20mg/ml) 5ml vial ONE (07:53)
[2020-03-27] MEDS ORDERED: morphine 2 MG/ML inj. syringe IV PRN (08:05)
[2020-03-27] MEDS ORDERED: ondansetron/PF 4mg/2ml inj IV PRN (08:05)
[2020-03-27] MEDS ORDERED: acetaminophen 1,000mg/100ml IV 100 ML IV PRN (08:05)
[2020-03-27] MEDS ORDERED: hydrALAZINE 20mg/ml inj. IV PRN (08:05)
[2020-03-27] MEDS ORDERED: labetalol 20mg/4ml (5mg/ml) syringe IV PRN (08:05)
[2020-03-27] MEDS ORDERED: meperidine/PF 25mg/ml syringe IV PRN ×2 (08:05)
[2020-03-27] MEDS ORDERED: morphine 4 MG/ML inj SYRINge IV PRN (08:05)
[2020-03-27] MEDS ORDERED: ringers solution, lacted 1,000 ML IV SCH (08:05)
[2020-03-27] MEDS ORDERED: proCHLORperazine 10 MG/2 ml inj IV PRN (08:05)
[2020-03-27] MEDS ORDERED: neostigmine methylsulfate 1 MG/ML 10ml vial ONE (08:37)
[2020-03-27] MEDS ORDERED: glycopyrrolate 0.2mg/ml inj ONE (08:37)
[2020-03-27] MEDS ORDERED: albuterol 60 PUFF/8GM Inhaler IH ONE (08:54)
--- NOTE | 2020-03-27 09:03 | NUR ---
Received from OR via [facility], accompanied by Anesthesiologist DR ALVAREZ and report given by Anesthesiologist. PT VERY DROWSY, ORAL AIRWAY PLACED BY DR ALVAREZ. NO S/S OF DISTRESS/DISCOMFORT, ABDOMEN W/3 LAP SITES W/BANDAIDS CDI. Addendum: 03/27/20 at 0923 by Shirin Eid RN Amended: Links added.
[2020-03-27] MEDS ORDERED: HYDROcodone/acetaminophen 5mg/325mg tablet PO PRN ×2 (09:10)
[2020-03-27] MEDS: meperidine/PF 25mg/ml syringe IV PRN ×2 (09:16→09:55)
--- NOTE | 2020-03-27 11:45 | NUR ---
PT UP TO BATHROOM FOR VOID, STEADY ON FEET, BACK TO CHAIR, DRESSED, AWAITING HER RIDE HOME. Addendum: 03/27/20 at 1223 by Shirin Eid RN Amended: Links added.
--- NOTE | 2020-03-27 12:43 | NUR ---
D/C INSTRUCTIONS GIVEN AND GONE OVER W/PT WHO VERBALIZED UNDERSTANDING, PT D/CD TO HOME VIA W/C TO PRIVATE VEHICLE W/O INCIDENT. Addendum: 03/27/20 at 1306 by Shirin Eid RN Amended: Links added.
== END 2020-03-27 12:43 | disposition home or self-care (01) ==
LOC: PAS 05:45
PROVIDERS: ATTEND Surgery
DX: K41.30 Unilateral femoral hernia, with obstruction, without gangrene, not specified as recurrent (principal); K43.9 Ventral hernia without obstruction or gangrene; D64.9 Anemia, unspecified; K21.9 Gastro-esophageal reflux disease without esophagitis; Z88.1 Allergy status to other antibiotic agents; Z79.899 Other long term (current) drug therapy; Z20.828 Contact with and (suspected) exposure to other viral communicable diseases; Z79.01 Long term (current) use of anticoagulants; Z86.718 Personal history of other venous thrombosis and embolism; Z86.711 Personal history of pulmonary embolism; Z98.890 Other specified postprocedural states
CPT/HCPCS: 36415; 49560; 49568; 49659; 80053; 82948; 85025; 85610; 85730; 87635; 93005; C1781; J0131; J1100; J2001; J2175; J2250; J2405; J2704; J2710; J3010; J3490; J7120; A4215; A4618